=== PATIENT | male | born 1995 | race Caucasian/White ===

== ENCOUNTER 2018-10-05 22:56 | Emergency (ER) | payer OTHER ==
[~2018-10-05] VITALS: Ht 182.9 cm; Wt 97.8 kg
[2018-10-05 23:05] VITALS: Ht 182.9 cm; Wt 97.8 kg
[2018-10-05] MEDS ORDERED: ONDANSETRON (ODT) 4 MG TAB ODT STA (23:42)
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
[2018-10-06] MEDS ORDERED: HYDROCODONE/APAP (5/325) TAB PO ONE
[2018-10-06] MEDS ORDERED: DIPHTH/TET/ACEL PERTUSS (ADULT) 0.5 ML VIAL IM* ONE
[2018-10-06] MEDS ORDERED: IBUP800T48 PO (01:43)
[2018-10-06] MEDS ORDERED: CYCL10TA7 PO (01:44)
[2018-10-06] MEDS ORDERED: AMOX1TAB10 PO (01:45)
[2018-10-06] MEDS ORDERED: HYDR-3980 PO (01:45)
[2018-10-06 02:06] VITALS: BP 132/86; PULSE 64; RESP 18
== END 2018-10-06 02:07 | disposition home or self-care (01) ==
LOC: FTE 22:56
DX: S02.40CA Maxillary fracture, right side, initial encounter for closed fracture (principal); S01.511A Laceration without foreign body of lip, initial encounter; S06.0X0A Concussion without loss of consciousness, initial encounter; S20.219A Contusion of unspecified front wall of thorax, initial encounter; M62.838 Other muscle spasm; V43.52XA Car driver injured in collision with other type car in traffic accident, initial encounter; Z23 Encounter for immunization
CPT/HCPCS: 70450; 70486; 71046; 72125; 90471; 90715; Z7502; Z7610